=== PATIENT | male | born 1950 | race Caucasian/White ===

== ENCOUNTER 2018-09-06 08:15 | Day surgery (SDC) | payer MEDICARE, BC ==
[2018-09-06] MEDS ORDERED: LIDOCAINE 2% MDV (20MG/ML) 20ML VIAL IV ONE (08:16)
[2018-09-06] MEDS ORDERED: PROPOFOL 10 MG/ML VIAL IV ONE (08:16)
--- NOTE | 2018-09-09 11:30 | Operative Note ---
DATE OF SURGERY: 09/06/2018 SURGEON: Linda French MD OPERATION: COLONOSCOPY. INDICATIONS: This is a 67-year-old male with average risk for colorectal cancer who presented for subsequent colonoscopic screening. Last colonoscopy was about 11 years ago. POSTOPERATIVE DIAGNOSES: 1. A 3 mm sessile polyp in the sigmoid colon that was removed by cold biopsy forceps. 2. Otherwise normal colon and terminal ileal mucosa. ANESTHESIA: Sedation is per Anesthesia. Pulse oximetry was monitored throughout the procedure to maintain O2 saturation of 90% or greater. Supplemental oxygen was administered via nasal cannula. Cardiac and vital signs were monitored throughout the duration of the procedure, and they were stable. The procedure of colonoscopy and risks and alternatives of the procedure, including the risk of bleeding and perforation, among others, were explained to the patient who voiced understanding and agreed to have the procedure done. Physical examination was performed, and the patient was found stable for sedation. PROCEDURE: The patient was placed in the left lateral position. Sedation was initiated. A digital rectal exam was performed and showed some mild external hemorrhoids with no palpable rectal masses. An Olympus PCF-180AL colonoscope was then inserted into the rectum under direct visualization. It was advanced to the cecum without difficulty. The ileocecal valve and appendiceal orifice were identified and photographed. The colonic mucosa was carefully examined upon introduction of the colonoscope. There were no lesions noted. The ileocecal valve was intubated and terminal ileal mucosa was inspected for about 10 cm and it appeared normal. The colonoscope was then withdrawn while carefully examining the colonic mucosal surfaces. No other lesions were noted except in the sigmoid colon was a 3 mm sessile polyp that was noted and was removed by cold biopsy forceps. In the rectum, retroflexion was performed and grade 1 internal hemorrhoids were noted. The colonoscope was then withdrawn and the procedure was terminated. The patient tolerated the procedure well without any immediate complications. The patient remained with stable vital signs and was transferred to the recovery room. RECOMMENDATIONS: 1. The patient should be on a high-fiber diet. 2. The patient is to have a repeat colonoscopy for surveillance in 5 or 10 years depending on the histology of the polyp. Thank you for allowing me to participate in the care of your patient. CC: ROXY Ho
== END 2018-09-06 10:05 | disposition home or self-care (01) ==
LOC: HOP 08:15
PROVIDERS: ATTEND Internal Medicine Gastroenterology
DX: Z12.11 Encounter for screening for malignant neoplasm of colon (principal); D12.5 Benign neoplasm of sigmoid colon

== ENCOUNTER 2019-11-24 12:48 | Emergency (ER) | payer MEDICARE ==
[2019-11-24] MEDS ORDERED: MAGNESIUM HYDROXIDE/AL HYDROX 30 ML, LIDOCAINE VISC 2% 15ML 15 ML PO ONE ×2 (13:57)
--- NOTE | 2019-11-24 13:57 | Emergency Department Record ---
History of Present Illness - General Chief Complaint: Abdominal Pain Stated Complaint: ABD PAIN, KUPSET STOMACH Time Seen by Provider: 11/24/19 12:51 Source: Patient Mode of Arrival: Ambulatory Limitations: No limitations - History of Present Illness Initial Comments: The patient is here due to having intermittent upper abdominal pain for about 2 weeks mainly after eating. The pain is cramping and intermittent and definitely worse after eating. There has been some nausea and dry heaves with the pain but no lower AP, fever, or diarrhea. The patient has no hx of similar problems and has had no abdominal surgeries. MD Complaint: Abdominal pain Onset/Timin -: Week(s) Location: Epigastric Quality: Cramping Consistency: Intermittent Worsens With: Eating - Related Data Allergies Allergy/AdvReac Type Severity Reaction Status Date / Time No Known Drug Allergies Allergy Unverified 11/24/19 10:57 Travel Screening - Travel/Exposure Within Last 30 Days Have you traveled within the last 30 days?: No - Travel/Exposure Within Last Year Have you traveled outside the [place] in the last year?: No - Additonal Travel Details Have you been exposed to anyone with a communicable illness?: No Review of Systems Constitutional: Reports: Malaise. Denies: Chills, Fever Eyes: Denies: Eye discharge ENT: Denies: Congestion Respiratory: Denies: Cough, Dyspnea Cardiovascular: Denies: Chest pain Endocrine: Denies: Fatigue Gastrointestinal: Reports: Abdominal pain, Nausea. Denies: Diarrhea, Vomiting Genitourinary: Denies: Hematuria Musculoskeletal: Denies: Arthralgia Past Medical History - SOCIAL HISTORY Smoking Status: Current every day smoker Alcohol Use: None Drug Use: None - RESPIRATORY Hx Respiratory Disorders: Yes Hx COPD: Yes - CARDIOVASCULAR Hx Cardio Disorders: Yes Hx Hypertension: Yes Comment:: stent in left upper groin - NEURO Hx Neuro Disorders: No - GI Hx GI Disorders: No - Hx Genitourinary Disorders: No - ENDOCRINE Hx Endocrine Disorders: No - MUSCULOSKELETAL Hx Musculoskeletal Disorders: Yes - PSYCH Hx Psych Problems: No - HEMATOLOGY/ONCOLOGY Hx Hematology/Oncology Disorders: No Family Medical History Any Significant Family History?: No Family Hx Comment (NOT TO BE USED IN PLACE OF ITEMS BELOW): mother lung cancer at 82, dad had stroke at 90 Hx Cancer: Father, Mother Physical Exam - General General Appearance: Alert, Oriented x3, Cooperative, No acute distress - Head Head exam: Atraumatic, Normocephalic, Normal inspection - Eye Eye exam: Normal appearance, PERRL - ENT Throat exam: Normal inspection. negative: Tonsillar erythema, Tonsillar exudate - Neck Neck exam: Normal inspection, Full ROM. negative: Tenderness - Respiratory Respiratory exam: Normal lung sounds bilaterally. negative: Respiratory distress - Cardiovascular Cardiovascular Exam: Regular rate, Normal rhythm, Normal heart sounds - GI/Abdominal GI/Abdominal exam: Soft, Normal bowel sounds, Tenderness (There is mild epigastric tenderness to palpation.). negative: Rebound, Rigid - Extremities Extremities exam: Normal inspection, Full ROM, Normal capillary refill. negative: Tenderness - Neurological Neurological exam: Alert. negative: Motor sensory deficit Course Vital Signs 11/24/19 13:44 Temperature 98.1 F Pulse Rate [ 95 H Left Radial] Respiratory 20 Rate Blood Pressure 128/69 [Left Arm] Pulse Ox 95 - Reevaluation(s) Reevaluation #1: The patient is doing better at this time. He presently denies any pain or discomfort. I did discuss the case with him and the need for admission to general surgery due to the gallbladder issue. The patient agrees with the plan. I then did discuss the case with Dr. Humphrey and he will make the patient a direct admit to [facility] [place] and assume care. 11/24/19 15:43 Medical Decision Making - Data Complexity MDM Data: Labs Ordered and/or Reviewed, X-Ray Ordered and/or Reviewed - Lab Data Result diagrams: 11/24/19 14:10 - Radiology Data Radiology results: Report reviewed (CT: Acute Cholycystitis.) Disposition Disposition: Transfer Clinical Impression: Cholecystitis Disposition: Acute Care Hospital Transfer Transfer To: [facility] [place] Reason For Transfer: Gen Surgery Accepting Physician: Kam Time Discussed w/Accepting Physician: 15:45 Condition: (2) Stable Additional Instructions: Please proceed directly to [facility] [place] to be directly admitted to Dr. Humphrey. Do not eat or drink on the way. Forms: Patient Portal Access Time of Disposition: 15:45 Quality - Quality Measures Quality Measures: N/A - Blood Pressure Screening View Details: Yes Does Patient Have Any of the Following: No Blood Pressure Classification: Normal BP Reading Systolic Measurement: 116 Diastolic Measurement: 59 Screening for High Blood Pressure: < Normal BP, F/U Not Required > [G8783]
[2019-11-24] MEDS ORDERED: ONDANSETRON HCL IV 4 MG/2 ML VIAL IVP ONE (14:03)
[2019-11-24 14:21] LABS: ABSOLUTE NEUTROPHIL COUNT 13.32; HEMATOCRIT 37.3 % (42.0-52.0); MEAN CORPUSCULAR HEMOGLOBIN 28.6 pg (27-33); MEAN CORPUSCULAR HGB CONC 32.2 g/dl (32-36); MEAN PLATELET VOLUME 9.5 fl (7.4-10.4); PLATELET COUNT 333 K/uL (130-400); RED BLOOD COUNT 4.19 M/uL (4.40-5.70); RED CELL DISTRIBUTION WIDTH 15.3 % (11.5-14.5); WHITE BLOOD COUNT W/O DIFF 15.6 K/uL (4.2-12.2)
[2019-11-24 14:22] LABS: URINE APPEARANCE CLEAR; URINE BILIRUBIN NEGATIVE (NEGATIVE); URINE BLOOD SMALL (NEGATIVE); URINE COLOR YELLOW; URINE GLUCOSE (UA) NEGATIVE (NEGATIVE); URINE KETONE NEGATIVE (NEGATIVE); URINE LEUKOCYTE ESTERASE NEGATIVE (NEGATIVE); URINE NITRITE NEGATIVE (NEGATIVE); URINE PROTEIN TRACE (NEGATIVE)
[2019-11-24 14:37] LABS: PLATELET ESTIMATE NORMAL (NORMAL)
[2019-11-24 14:42] LABS: URINE EPITHELIAL CELLS RARE (FEW); URINE WBC NONE SEEN (0-2/hpf)
--- NOTE | 2019-11-24 15:07 | CT SCAN REPORT ---
EXAMINATION: CT Abdomen and Pelvis without IV Contrast EXAM DATE: 11/24/2019 2:56 PM TECHNIQUE: Standard protocol CT imaging of the abdomen and pelvis was performed without intravenous c ontrast. INDICATION: Upper abdominal pain, nausea, diarrhea COMPARISON: Chest CT images from 09/05/2019 FINDINGS: CT abdomen: No evidence of urinary tract calculus. No hydronephrosis or hydroureter. Extensive athero sclerotic calcifications in the aorta and branches, including in the central renal arteries bilateral ly. Interval development of prominent distention of the gallbladder, with at least mild wall thickening. Soft tissue density and fluid density stranding is seen in the adjacent fat and fascial planes. Clear lung bases. Normal heart size with mild atherosclerotic coronary artery calcifications. CT pelvis: No abnormal mass or fluid collection. No free air or free fluid. Uncomplicated mild sigmoi d diverticulosis. Normal-appearing appendix. No acute bony abnormality. Lumbar spine degenerative and postsurgical changes. IMPRESSION: 1. Gallbladder distention, with wall thickening and surrounding inflammatory changes. Please correlat e for acute cholecystitis. 2. No other acute abnormality. Normal-appearing appendix. 3. No evidence of urinary tract calculus. Dictated by: Mark David MD on 11/24/2019 3:01 PM. .
[2019-11-24] MEDS ORDERED: ERTAPENEM SODIUM 1 G in 0.9 % SODIUM CHLORIDE 100ML 100 ML IVPB ONE (15:36)
[2019-11-24] MEDS ORDERED: 0.9 % SODIUM CHLORIDE 1,000 ML BAG IV ONE (16:31)
== END 2019-11-24 18:33 | disposition short-term general hospital (02) ==
LOC: ER 12:48
DX: K81.0 Acute cholecystitis (principal); I10 Essential (primary) hypertension; F17.210 Nicotine dependence, cigarettes, uncomplicated
CPT/HCPCS: 99284 ×2; 96365; 83690; 80053; 81001; 85027; 74019; 74176; J1335